=== PATIENT | male | born 1940 | race Caucasian/White ===

== ENCOUNTER 2016-03-21 12:27 | Day surgery (SDC) | payer MEDICARE, MEDICAID ==
[~2016-03-21] VITALS: Ht 182.9 cm; Wt 103.9 kg
[~2016-03-21 12:27] MED LIST: 0.9% Sodium Chloride 1,000 ML IV SCH; ACYC400T2 PO; ASPI-973 PO; ATOR20TA65 PO; BUPR75TA5 PO; CELE200C PO; CHOL100045 PO; CYAN50LO PO; DOCU250C2 PO; FLUT16SP NS; GABA600T2 PO; HYDR-3797 PO; LACT1CAP73 PO; LISI-571 PO; MELO-259 PO; OMEP40CA36 PO; PROP60CA2 PO; SILD50TA PO; Sodium Chloride LOK Flush 10 mL Syringe IV PRN; TERA5CAP6 PO; ZLP5T PO; fentaNYL-PF 50 mCg/mL 2 mL Inj IVPUSH PRN
[2016-03-21 13:30] VITALS: BP 142/82; PULSE 65; O2SAT 93
[2016-03-21 14:20] VITALS: BP 125/75; PULSE 60; RESP 16; O2SAT 89
[2016-03-21 14:30] VITALS: BP 121/70; PULSE 56; RESP 16; O2SAT 93
[2016-03-21 14:40] VITALS: BP 121/69; PULSE 55; RESP 16; O2SAT 94
[2016-03-21 15:00] VITALS: BP 122/70; PULSE 61; RESP 16; O2SAT 95
--- NOTE | 2016-03-22 01:01 | ENDO ---
[address] [address] ENDOSCOPY PROCEDURE PATIENT: JOSUE DELEON : 1940 MR#: [id number] ADMIT: 03/21/2016 JOB ID: [id number] DATE OF PROCEDURE: 03/21/2016 PRIMARY PROVIDER: Iam Baca MD. PROCEDURE: Esophagogastroduodenoscopy with biopsy. INDICATIONS: A 75-year-old male with a history of gastric small lipoma. He was advised for surveillance endoscopy. He is essentially asymptomatic. Reflux symptoms are controlled. EQUIPMENT: [id number]. SEDATION: 1. Versed 7 mg. 2. Demerol 50 mg. COMPLICATIONS: None identified. PROCEDURE INFORMATION: After the risks and benefits were explained, written and verbal informed consent was obtained. The patient was brought into the endoscopy suite and placed into the left lateral decubitus position. Sedation was achieved as above. The scope was introduced into the mouth through the bite block and advanced under direct visualization through the oropharynx, esophagus, stomach, and onto the second portion of the duodenum. The scope was slowly withdrawn to carefully examine the mucosa for any defects or lesions. Retroflexed views were accomplished in the stomach. The stomach was decompressed. The scope was removed from the patient who tolerated the procedure well. FINDINGS: 1. Duodenum: No pathology identified from the bulb through to the second portion. 2. Stomach: In the distal body, arguably proximal antrum, there was an approximately 11 to 12 mm submucosal mass. This was soft under the forceps, Consistent with the previously diagnosed lipoma. There was some erythematous and somewhat almost ecchymotic appearing mucosa at the distal aspect of this submucosal lesion. We reviewed the photographs from Dr. Beasley's case in 2013 and this appeared quite similar. We took another round of photographs for the record today. Retroflexed views of the LES disclosed a sliding hiatal hernia. 3. Esophagus: The squamocolumnar junction correlated with the top of the gastric folds. There was a nonobstructing Schatzki's ring. The GE junction was at about 37 cm from the incisors. The diaphragmatic pinchcock was at about 40 cm from the incisors. There was a small polyp within the hiatal hernia sac in the gastric cardia that was biopsied. No acute erosive changes were seen in the esophagus and no other pathology throughout. ENDOSCOPIC DIAGNOSES: 1. Hiatal hernia. 2. Schatzki's. 3. Gastric polyp. 4. Stable gastric submucosal lipoma. RECOMMENDATIONS: 1. Await histopathology. 2. Continue anti-reflux therapy. 3. There does not appear to be any significant growth of this submucosal lipoma this lesion. I think it would be reasonable to withhold further surveillance endoscopy and only pursue EGD should the patient have any concerning change in symptoms.
--- NOTE | 2016-03-23 12:58 | PATH ---
SURGICAL PATHOLOGY Attending Physician:Hernán Matta CASE STATUS: Signed Out PATIENT NAME: JOSUE DELEON PID: [id number] : 1940 DATE COLLECTED:03/21/2016 00:00 SPECIMEN: Stomach, Polyp, Biopsy CLINICAL HISTORY: CARDIA POLYP BIOPSY FINAL DIAGNOSIS: Cardia Polyp, Biopsy: Changes consistent with benign fundic gland polyp, negative for atypia. ICD10 K31.7 GROSS DESCRIPTION: The specimen is received in one formalin filled container labeled with the patient's name, sublabeled "cardia polyp" and consists of 3 portions of tissue which aggregate to 0.3 x 0.3 x 0.2 CM. The specimen is entirely submitted in one cassette. 03/22/2016 [facility] ICD-9 CODES: CPT CODES: 1: 84073 Electronically Signed Out Tayo Marcum MD [facility] Pathology [facility] [address], [place] [address] Technical component performed at [facility], [facility] [address], [place], [address]
== END 2016-03-21 23:59 | disposition home or self-care (01) ==
LOC: END 12:27
PROVIDERS: ATTEND Internal Medicine Gastroenterology
DX: K31.89 Other diseases of stomach and duodenum (principal); K31.7 Polyp of stomach and duodenum; D17.5 Benign lipomatous neoplasm of intra-abdominal organs; K44.9 Diaphragmatic hernia without obstruction or gangrene; K22.2 Esophageal obstruction; E11.9 Type 2 diabetes mellitus without complications; I35.1 Nonrheumatic aortic (valve) insufficiency; I25.10 Atherosclerotic heart disease of native coronary artery without angina pectoris; Z95.5 Presence of coronary angioplasty implant and graft
CPT/HCPCS: 43239; 88305; G0500; J2175; J2250; J7030